=== PATIENT | female | born 1990 | race Caucasian/White ===

== ENCOUNTER 2019-02-15 19:24 | Emergency (ER) | payer OTHER ==
[~2019-02-15] VITALS: Ht 160 cm; Wt 67.7 kg
[2019-02-15 19:40] VITALS: Ht 160 cm; Wt 67.7 kg
[2019-02-15] MEDS ORDERED: ACETAMINOPHEN 500 MG TAB PO STA (20:59)
--- NOTE | 2019-02-15 20:59 | ERD ---
ER Documentation Chief Complaint Chief Complaint vag bleeding x3 days w/ lower AP. no n/v/d/fever. 7 wks HPI This is a 28-year-old female presents emergency department with complaints of vaginal bleeding for about 3 days. Stated that she has a lower LMP: 12/24/2017. TINO: 10/31/2009. A0. Denies headache, head injury, loss of consciousness, dizziness, neck pain, neck stiffness, throat pain, difficulty swallowing, difficulty breathing lying flat, shoulder pain, chest pain, back pain, nausea, vomiting, constipation, diarrhea, urinary symptoms, loss of bowel and bladder control, trauma, injury, falls, difficulty walking due to pain, numbness or tingling sensation, calf pain, recent travel, recent major surgery in the last 3 weeks, calf pain, recent long travel, recent exposure to any illness, recent antibiotic use in the last 3 months, fever, chills, seizures. Past medical history: Surgical history: Social: Denies smoking, use of alcoholic beverages, use of illegal drugs. Abdominal/pelvic pain and cramping. Stated that she is 7 weeks . ROS All systems reviewed and are negative except as per history of present illness. Medications Home Meds Active Scripts Acetaminophen* (Tylophen*) 500 Mg Capsule, 1 CAP PO Q6H PRN for PAIN AND OR E LEVATED TEMP, #20 CAP Prov:DEXTERJA CARRILLO 02/16/19 Allergies Allergies: Coded Allergies: No Known Allergy (Unverified , 02/15/19) PMhx/Soc Medical and Surgical Hx: pt denies Medical Hx, pt denies Surgical Hx History of Surgery: No Anesthesia Reaction: No Hx Neurological Disorder: No Hx Respiratory Disorders: No Hx Cardiac Disorders: No Hx Psychiatric Problems: No Hx Miscellaneous Medical Probl: No Hx Alcohol Use: No Hx Substance Use: No Hx Tobacco Use: No Smoking Status: Never smoker Physical Exam Vitals Vital Signs Date Temp Pulse Resp B/P (MAP) Pulse Ox O2 O2 Flow FiO2 Time Delivery Rate 02/16/19 98.4 68 17 102/52 99 Room Air 00:30 (69) 02/15/19 99.1 97 18 137/84 100 19:40 (101) Physical Exam Const: No acute distress Head: Atraumatic Eyes: Normal Conjunctiva ENT: Normal External Ears, Nose and Mouth. Neck: Full range of motion. No meningismus. Resp: Clear to auscultation bilaterally Cardio: Regular rate and rhythm, no murmurs Abd: Soft, non tender, non distended. Normal bowel sounds. Negative Guzman sign but negative [place] sign (heel jar test). Negative psoas sign. Negative Rovsing sign. No CVA tenderness. Skin: No petechiae or rashes. Color appears normal for ethnicity. No skin tenting. No signs of severe dehydration. Back: No midline or flank tenderness Ext: No cyanosis, or edema Neur: Awake and alert. No neurological deficit. Psych: Normal Mood and Affect Result Diagram: 02/15/19219902/15/192199 Results 24 hrs Laboratory Tests Test 02/15/19 22:00 02/15/19 23:05 White Blood Count 9.5 10^3/ul Red Blood Count 4.52 10^6/ul Hemoglobin 12.9 g/dl Hematocrit 39.5 % Mean Corpuscular Volume 87.4 fl Mean Corpuscular Hemoglobin 28.5 pg Mean Corpuscular Hemoglobin Concent 32.7 g/dl Red Cell Distribution Width 12.9 % Platelet Count 320 10^3/UL Mean Platelet Volume 10.4 fl Immature Granulocytes % 0.200 % Neutrophils % 62.5 % Lymphocytes % 26.4 % Monocytes % 7.9 % Eosinophils % 2.6 % Basophils % 0.4 % Nucleated Red Blood Cells % 0.0 /100WBC Immature Granulocytes # 0.020 10^3/ul Neutrophils # 5.9 10^3/ul Lymphocytes # 2.5 10^3/ul Monocytes # 0.8 10^3/ul Eosinophils # 0.3 10^3/ul Basophils # 0.0 10^3/ul Nucleated Red Blood Cells # 0.0 10^3/ul Sodium Level 140 mmol/L Potassium Level 3.6 mmol/L Chloride Level 107 mmol/L Carbon Dioxide Level 23 mmol/L Anion Gap 10 Blood Urea Nitrogen 12 mg/dl Creatinine 0.51 mg/dl Est Glomerular Filtrat Rate mL/min > 60 mL/min Glucose Level 109 mg/dl Calcium Level 9.3 mg/dl Total Bilirubin 0.3 mg/dl Direct Bilirubin 0.00 mg/dl Indirect Bilirubin 0.3 mg/dl Aspartate Amino Transf (AST/SGOT) 18 IU/L Alanine Aminotransferase (ALT/SGPT) 14 IU/L Alkaline Phosphatase 74 IU/L Total Protein 7.8 g/dl Albumin 4.4 g/dl Globulin 3.40 g/dl Albumin/Globulin Ratio 1.29 Lipase 110 U/L Beta HCG, Quantitative 1856.3 mIU/ml Urine Color YELLOW Urine Clarity CLEAR Urine pH 8.0 Urine Specific [place] 1.024 Urine Ketones NEGATIVE mg/dL Urine Nitrite NEGATIVE mg/dL Urine Bilirubin NEGATIVE mg/dL Urine Urobilinogen NEGATIVE mg/dL Urine Leukocyte Esterase NEGATIVE Crystal/ul Urine Microscopic RBC 63 /HPF Urine Microscopic WBC 3 /HPF Urine Mucus FEW /HPF Urine Hemoglobin 1+ mg/dL Urine Glucose NEGATIVE mg/dL Urine Total Protein NEGATIVE mg/dl Current Medications Medications Dose Sig/Cecilio Start Time Status Last (Trade) Ordered Route PRN Stop Time Admin Dose Reason Admin 500 mg ONCE STAT 02/15/19 DC Acetaminophen PO 20:59 (Tylenol 02/15/19 21:02 Tab) Sodium 1,000 ml @ Q1H ONCE 02/15/19 DC Chloride 1,000 mls/hr IV 21:30 02/15/19 22:29 Procedures/MDM Diagnostic tests: Urinalysis: Reviewed. Culture urine: Sent. HCG quantitative: 1856.3. Type and Rh: O Positive. Blood works: Reviewed. OB ultrasound: No intrauterine gestation visualized. Differential diagnosis includes early , missed or ectopic . Follow-up ultrasound and HCG levels is recommended. Treatment: Tylenol p.o. Pelvic exam: Patient refuses for me to do a pelvic exam. Re-evaluation: Denies pain. Denies vaginal bleeding. No signs of hemorrhaging. Negative Guzman sign but negative [place] sign (heel jar test). Negative psoas sign but negative Rovsing sign. No CVA tenderness. Differential diagnosis I have low suspicion for ectopic , hemorrhaging, sepsis. Final diagnosis: Miscarriage. Prescription: Tylenol. vitamins. Follow-up with OB in the next 24-48 hours. Come back here in the emergency department for any new symptoms or any worsening symptoms. All questions and concerns were answered. Patient and family members verbalized understanding and agreed with plan of care. Hemodynamically stable on discharge. Departure Diagnosis: Primary Impression: Miscarriage Condition: Stable Additional Instructions: Follow-up with OB in the next 24-48 hours. Come back here in the emergency department for any new symptoms or any worsening symptoms. JA NEVILLE Apr 18, 2019 20:59
[2019-02-15] MEDS ORDERED: SOD CHLORIDE 0.9% 1,000 ML IV ONE (21:30)
[2019-02-16] MEDS ORDERED: ACET500C5 PO (00:08)
[2019-02-16 00:30] VITALS: BP 102/52; PULSE 68; RESP 17
== END 2019-02-16 00:30 | disposition home or self-care (01) ==
LOC: FTE 19:24
DX: O03.9 Complete or unspecified spontaneous abortion without complication (principal); R10.30 Lower abdominal pain, unspecified
CPT/HCPCS: 76801; 80053; 81001; 83690; 84702; 85025; 86900; 86901; 87086; 88305; J7030; Z7502; Z7610